=== PATIENT | female | born 1970 | race Caucasian/White ===

== ENCOUNTER → 2019-01-24 | Outpatient (CLI) | payer OTHER | LOC: LAB SHORT 17:02 → LAB 17:02 | DX: R30.0 Dysuria (principal) | CPT/HCPCS: 87077; 87086; 87186 ==

== ENCOUNTER 2024-08-07 12:29 | Emergency (ER) | payer OTHER ==
[~2024-08-07] VITALS: Ht 167.6 cm; Wt 88.5 kg
[2024-08-07 12:41] VITALS: BP 131/98
[2024-08-07] MEDS ORDERED: Ketorolac Tromethamine 30mg Vial IM ONE (13:25)
[2024-08-07] MEDS ORDERED: OXYC5 PO ×2 (13:32→14:13)
[2024-08-07] MEDS ORDERED: OMEP20ER PO ×2 (13:32→14:13)
== END 2024-08-07 13:59 | disposition home or self-care (01) ==
LOC: ER 12:29
DX: M76.51 Patellar tendinitis, right knee (principal); Z91.018 Allergy to other foods
CPT/HCPCS: 73562-RT; 96372; 99283-25; J1885

== ENCOUNTER → 2024-12-19 | Outpatient (CLI) | payer OTHER ==
[~2024-12-19] MED LIST: OMEP20ER PO; OXYC5 PO
== END ==
LOC: LAB 11:03 → LAB SHORT 11:03
DX: R07.0 Pain in throat (principal)
CPT/HCPCS: 87081